=== PATIENT | male | born 1955 | race Two or more races ===

== ENCOUNTER 2017-04-13 05:54 | Inpatient (IN) | payer OTHER ==
[~2017-04-13] VITALS: Ht 162.6 cm; Wt 154.3 kg
[2017-04-13] MEDS ORDERED: ONDANSETRON 2MG/ML, 2ML IVP ONE (06:00)
[2017-04-13] MEDS ORDERED: SODIUM CHLORIDE FLUSH 10ML SYR IVF ONE ×2 (06:00→11:00)
[2017-04-13] MEDS ORDERED: ONDANSETRON 2MG/ML, 2ML ONE (06:07)
[2017-04-13 06:14] LABS: HEMATOCRIT 41.5 % (39.2-51.8); HEMOGLOBIN 13.6 g/dL (13.7-18.0); WHITE BLOOD COUNT 13.9 x10^3/uL (3.4-10)
[2017-04-13 06:32] LABS: ASPARTATE AMINO TRANSFERASE 21 U/L (15-37); BLOOD UREA NITROGEN 48 mg/dL (7-18)
[2017-04-13 06:37] LABS: IS PT STATUS REG ER OR PRE ER? YES
[2017-04-13] MEDS ORDERED: PROMETHAZINE 25 MG/ML, 1ML IM ONE (07:00)
[2017-04-13] MEDS ORDERED: PROMETHAZINE 25 MG/ML, 1ML ONE (07:00)
[2017-04-13] MEDS ORDERED: ONDANSETRON 2MG/ML, 2ML IVPush ONE (07:00)
[2017-04-13] MEDS ORDERED: PLEASE ENTER ALLERGIES MC SCH ×2 (07:00)
[2017-04-13] MEDS ORDERED: FURO-92 PO (08:25)
[2017-04-13] MEDS ORDERED: POTA20PA PO (08:26)
[2017-04-13] MEDS ORDERED: INDO25CA PO (08:26)
[2017-04-13] MEDS ORDERED: ASPI-650 PO (08:27)
[2017-04-13] MEDS ORDERED: ALLO100T30 PO (08:27)
[2017-04-13] MEDS ORDERED: CETI10TA32 PO (08:29)
[2017-04-13] MEDS ORDERED: HYDR-3307 PO (08:30)
[2017-04-13] MEDS ORDERED: LISI5TAB7 PO (08:30)
[2017-04-13] MEDS ORDERED: INSU500I SQ (08:32)
[2017-04-13] MEDS ORDERED: ONDANSETRON 2MG/ML, 2ML IVPush PRN ×5 (09:30→18:30)
[2017-04-13] MEDS ORDERED: FUROSEMIDE 20 MG/2 ML IV ONE (11:00)
[2017-04-13] MEDS ORDERED: LABETALOL 5MG/ML, 20ML IVPush PRN ×4 (11:00→18:30)
[2017-04-13] MEDS ORDERED: BISACODYL 10 MG SUPP PR PRN ×4 (11:00→18:30)
[2017-04-13] MEDS ORDERED: DEXTROSE 4 GM TAB.CHEW PO PRN ×3 (11:00→18:30)
[2017-04-13] MEDS: HEPARIN 5,000 UNITS/ML, 1ML SQ SCH ×2 (11:00→20:34)
[2017-04-13] MEDS ORDERED: ONDANSETRON ODT 4 MG PO PRN ×4 (11:00→18:30)
[2017-04-13] MEDS ORDERED: ACETAMINOPHEN 325 MG TABLET PO PRN ×4 (11:00→18:30)
[2017-04-13] MEDS ORDERED: POLYETHYLENE GLYCOL 17 GM PACKET PO PRN ×3 (11:00→18:30)
[2017-04-13] MEDS ORDERED: DEXTROSE 50%, 50ML SYRINGE IVPush PRN ×2 (11:00→18:30)
[2017-04-13] MEDS ORDERED: GLUCAGON 1 MG IM PRN ×4 (11:00→18:30)
[2017-04-13] MEDS ORDERED: SODIUM CHLORIDE 0.9% 1,000 ML IV ONE (11:00)
[2017-04-13] MEDS ORDERED: MORPHINE SULFATE 4 MG/ML, 1ML IVPush PRN (11:00)
[2017-04-13] MEDS ORDERED: DOCUSATE 100 MG CAPSULE PO PRN ×4 (11:00→18:30)
[2017-04-13] MEDS: INSULIN ASPART 100 UNITS/ML, PEN SQ-INSULIN SCH ×3 (14:55→20:35)
[2017-04-13 15:00] VITALS: BP 126/77
[2017-04-13] MEDS ORDERED: MECLIZINE 12.5 MG TABLET PO PRN ×4 (15:30→18:30)
[2017-04-13 15:43] VITALS: BP 102/63
[2017-04-13 18:56] VITALS: BP_SYST 111; BP_SYST 113; BP_SYST 91; BP_DIAS 60; BP_DIAS 66; BP_DIAS 68
[2017-04-13] MEDS: SODIUM CHLORIDE FLUSH 10ML SYR IVF SCH (20:35)
[2017-04-14 01:43] VITALS: BP 98/59
[2017-04-14] MEDS: HEPARIN 5,000 UNITS/ML, 1ML SQ SCH (03:00)
[2017-04-14 05:29] LABS: HEMATOCRIT 39.4 % (39.2-51.8); HEMOGLOBIN 12.7 g/dL (13.7-18.0); WHITE BLOOD COUNT 9.5 x10^3/uL (3.4-10)
[2017-04-14 05:35] LABS: BLOOD UREA NITROGEN 46 mg/dL (7-18)
[2017-04-14 05:38] LABS: ASPARTATE AMINO TRANSFERASE 17 U/L (15-37)
[2017-04-14 07:02] VITALS: BP 101/61
[2017-04-14] MEDS: INSULIN ASPART 100 UNITS/ML, PEN SQ-INSULIN SCH ×2 (08:32→12:24)
[2017-04-14] MEDS: SODIUM CHLORIDE FLUSH 10ML SYR IVF SCH (08:33)
[2017-04-14] MEDS ORDERED: INDOMETHACIN 25 MG CAPSULE PO SCH (09:00)
[2017-04-14] MEDS ORDERED: ASPIRIN 325 MG TABLET EC PO SCH (09:00)
== END 2017-04-14 12:31 | disposition home or self-care (01) | DRG 149 ==
LOC: ED 07:16 → EDIP 09:15 → 4EST 11:49
PROVIDERS: ADMIT Hospitalist; ATTEND Hospitalist
DX: H81.10 Benign paroxysmal vertigo, unspecified ear (principal); N17.0 Acute kidney failure with tubular necrosis; I13.0 Hypertensive heart and chronic kidney disease with heart failure and stage 1 through stage 4 chronic kidney disease, or unspecified chronic kidney disease; E87.1 Hypo-osmolality and hyponatremia; I50.9 Heart failure, unspecified; D64.9 Anemia, unspecified; E11.22 Type 2 diabetes mellitus with diabetic chronic kidney disease; D72.829 Elevated white blood cell count, unspecified; E11.65 Type 2 diabetes mellitus with hyperglycemia; E66.01 Morbid (severe) obesity due to excess calories; G47.33 Obstructive sleep apnea (adult) (pediatric); I25.10 Atherosclerotic heart disease of native coronary artery without angina pectoris; M10.9 Gout, unspecified; N18.2 Chronic kidney disease, stage 2 (mild); Z79.4 Long term (current) use of insulin
CPT/HCPCS: 36415; 70450; 71010; 80053; 81003; 82962; 83735; 83880; 84100; 84484; 85025; 93005; 94660; 96372; 96374; C8929; J1644; J1815; J2405; J2550; J1940